=== PATIENT | male | born 1980 | race Caucasian/White ===

== ENCOUNTER 2017-12-14 19:06 | Emergency (ER) | payer OTHER ==
[~2017-12-14] VITALS: Ht 175.3 cm; Wt 81.6 kg
== END 2017-12-14 23:28 | disposition home or self-care (01) ==
LOC: ER 19:06
DX: R42 Dizziness and giddiness (principal)

== ENCOUNTER 2023-08-03 14:27 | Outpatient (CLI) | payer OTHER | END 2023-08-03 14:29 | disposition home or self-care (01) | LOC: SONOGRAMA 14:27 | PROVIDERS: ATTEND Pathology Anatomic Pathology & Clinical Pathology | DX: Q89.2 Congenital malformations of other endocrine glands (principal) ==